=== PATIENT | male | born 1950 | race Caucasian/White ===

== ENCOUNTER → 2016-12-20 | Day surgery (SDC) | payer BC ==
[2016-12-20 09:06] LABS: FREE T4 0.96 ng/dl (0.76-1.16); THYROID STIMULATING HORMONE 2.29 uIU/ml (0.358-3.74)
--- NOTE | 2016-12-22 09:05 | PATH ---
Cytology Non-Gynecological Report Patient Name: MEGGAN ROB [facility]. Rec. #: [id number] /Age/Gender: 1950 (Age: 66) / M Account: [id number] Location: RADIOLOGY Taken: 12/20/2016 Received: 12/20/2016 Reported: 12/22/2016 Physicians: Azeem Luther M.D. 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 Comment: Recommend correlation with clinical findings and follow up as clinically indicated. Electronically Signed Andrew Krishna M.D. Gross Description Received are eight direct smears, four of which are air-dried and Diff-Quik stained, and four of which are alcohol fixed and Pap stained. Also received is 20 ml of bloody formalin from which one cellblock is prepared.
== END | disposition home or self-care (01) ==
LOC: JRADIR 07:28
PROVIDERS: ATTEND Internal Medicine Endocrinology, Diabetes & Metabolism
PROC: 0G9G3ZX Drainage of Left Thyroid Gland Lobe, Percutaneous Approach, Diagnostic (ICD-10-PCS; principal; 2016-12-20)
PROC: BG44ZZZ Ultrasonography of Thyroid Gland (ICD-10-PCS; 2016-12-20)
DX: E04.1 Nontoxic single thyroid nodule (principal)
CPT/HCPCS: 36415; 76942; 84439; 84442; 84443; 86800; 88173; 88305-TC